=== PATIENT | female | born 1995 | race Caucasian/White ===

== ENCOUNTER 2018-07-23 20:19 | Emergency (ER) | payer OTHER ==
[~2018-07-23] VITALS: Ht 157.5 cm; Wt 49.9 kg
[2018-07-23 20:35] VITALS: BP 135/77
--- NOTE | 2018-07-23 20:38 | NUR ---
PT TRIAGED AND SENT TO ER LOBBY
--- NOTE | 2018-07-23 20:54 | NUR ---
PT TAKEN TO BED 6
--- NOTE | 2018-07-23 21:15 | NUR ---
PT BIB SELF C/O 8/10 LEFT 3RD FINGER; +ECCYMOSIS, +SWELLING, UNABLE TO AMBULATE. AND HAND PAIN. PT STATES SHE WAS SKATEBOARDING ABOUT AN HR AGO AND FELL OFF THE BOARD ONTO HER LEFT HAND. DENIES LOC, OR HEAD TRAUMA. DENIES N/V/D. SKIN IS PINK/WARM/DRY; AAOX4 WITH EVEN AND STEADY GAIT; LUNGS CLEAR BL; HR EVEN AND REGULAR; PT DENIES ANY FEVER, CP, SOB, OR COUGH AT THIS TIME; PATIENT STATES PAIN OF 0/10 AT THIS TIME; VSS; PATIENT POSITIONED FOR COMFORT; HOB ELEVATED; BEDRAILS UP X2; BED DOWN. ER MD MADE AWARE OF PT STATUS. PMH: DENIES
--- NOTE | 2018-07-23 21:54 | NUR ---
X-Ray at bedside.
[2018-07-23] MEDS ORDERED: IBUPROFEN 800 MG TAB PO ONE (22:10)
--- NOTE | 2018-07-23 22:20 | NUR ---
LONG FINGER SPLINT APPLIED TO PT L 3RD FINGER. +CSM
[2018-07-23 22:35] VITALS: BP 114/79
--- NOTE | 2018-07-23 22:35 | NUR ---
Patient discharged with v/s stable. Written and verbal after care instructions given and explained. Patient alert, oriented and verbalized understanding of instructions. Ambulatory with steady gait. All questions addressed prior to discharge. ID band removed. Patient advised to follow up with PMD. Rx of MOTRIN, TRAMADOL given. Patient educated on indication of medication including possible reaction and side effects. Opportunity to ask questions provided and answered.
== END 2018-07-23 22:35 | disposition home or self-care (01) ==
LOC: MED 20:19
DX: S62.623A Displaced fracture of middle phalanx of left middle finger, initial encounter for closed fracture (principal); W19.XXXA Unspecified fall, initial encounter; Y93.89 Activity, other specified; Y92.89 Other specified places as the place of occurrence of the external cause; Y99.8 Other external cause status
CPT/HCPCS: 29130; 73130; 81002; 81025; 99283; Q0092